=== PATIENT | female | born 1965 | race Caucasian/White ===

== ENCOUNTER 2022-10-30 09:59 | Day surgery (SDC) | payer OTHER ==
[2022-10-29 10:30] VITALS: BMI 25.6
[2022-10-30] MEDS ORDERED: EPINEPHrine 1 MG/ML AMP ONE (11:14)
[2022-10-30] MEDS ORDERED: Bacitracin Zinc Ointment 30 gm TUBE ONE (11:14)
[2022-10-30] MEDS ORDERED: Lidocaine 1% (PF) 30 ML VIAL ONE (11:14)
[2022-10-30] MEDS ORDERED: fentaNYL PF 100 MCG/2 ML SYRINGE ONE (11:16)
[2022-10-30] MEDS ORDERED: Midazolam HCl 2 mg/2 ml Vial ONE (11:19)
[2022-10-30] MEDS ORDERED: Ondansetron PF 4 MG/2 ML Vial ONE (11:55)
[2022-10-30] MEDS ORDERED: ePHEDrine 50 MG/ML VIAL ONE (11:55)
[2022-10-30] MEDS ORDERED: Dexamethasone 20 MG/5 ML VIAL ONE (11:55)
[2022-10-30] MEDS ORDERED: PROPOFOL 200 MG/20 ML VIAL ONE (11:55)
[2022-10-30] MEDS ORDERED: Hydrocodone-Acetamin 15 ML UDCUP ONE (14:03)
== END 2022-10-30 14:59 | disposition home or self-care (01) ==
LOC: SDC 09:59
PROVIDERS: ATTEND Otolaryngology Plastic Surgery within the Head & Neck
PROC: 0CB80ZZ Excision of Right Parotid Gland, Open Approach (ICD-10-PCS; principal; 2022-10-30)
DX: K11.8 Other diseases of salivary glands (principal); Z87.891 Personal history of nicotine dependence
CPT/HCPCS: 36415; 85014; 88305; 93005; 93010; C1776; J0171; J1100; J2001; J2250; J2405; J2704; J3490